=== PATIENT | female | born 1950 | race Caucasian/White ===

== ENCOUNTER 2018-01-21 12:49 | Emergency (ER) | payer OTHER ==
[~2018-01-21] VITALS: Ht 165.1 cm; Wt 103.7 kg
[2018-01-21] MEDS ORDERED: NORCO 5/3251 TABLET PO (15:20)
[2018-01-21 15:34] VITALS: BP 144/87
== END 2018-01-21 15:42 | disposition home or self-care (01) ==
LOC: EME 12:49
DX: M19.011 Primary osteoarthritis, right shoulder (principal); M24.811 Other specific joint derangements of right shoulder, not elsewhere classified; Z87.891 Personal history of nicotine dependence
CPT/HCPCS: 73030; 99281; 99285

== ENCOUNTER 2018-04-28 13:12 | Emergency (ER) | payer OTHER ==
[~2018-04-28] VITALS: Ht 165.1 cm; Wt 103.6 kg
[~2018-04-28 13:12] MED LIST: NORCO 5/3251 TABLET PO
[2018-04-28 13:52] LABS: HEMOGLOBIN 16.3 G/DL (11.9-15.5); MCH 28.3 PG (29.0-34.0); MCHC 32.6 G/DL (30.0-36.0); MCV 86.8 FL (83-99); PLATELET COUNT 241 K/uL (156-360); RBC DIS.WIDTH-CV 13.2 % (11.8-14.6); RBC DIS.WIDTH-SD 41.6 % (39-53); RED BLOOD COUNT 5.76 M/uL (3.80-5.20); WHITE BLOOD COUNT 9.2 K/uL (4.1-10.2)
[2018-04-28 13:53] LABS: CHLORIDE 103 mEq/L (99-109); POTASSIUM 4.4 mEq/L (3.7-5.4); SODIUM 137 mEq/L (136-147)
[2018-04-28 13:54] LABS: GLUCOSE 156 mg/dL (70-99)
[2018-04-28 13:58] LABS: CREATININE 0.8 mg/dL (0.6-1.3); GFR ESTIMATE (CALCULATED) > 59 mL/min/
[2018-04-28 13:59] LABS: UREA NITROGEN (BUN) 14 mg/dL (9-23)
[2018-04-28 14:05] LABS: TROP-I INTERPRETATION NEGATIVE; TROPONIN-I < 0.01 ng/mL (0.0-0.30)
[2018-04-28 15:28] VITALS: BP 91/60
== END 2018-04-28 15:28 | disposition home or self-care (01) ==
LOC: EME 13:12
DX: I48.91 Unspecified atrial fibrillation (principal); E86.0 Dehydration; Z87.891 Personal history of nicotine dependence
CPT/HCPCS: 71046; 80048; 84484; 85027; 93005; 99281; 99285; J7030